=== PATIENT | male | born 1960 | race Asian ===

== ENCOUNTER → 2017-08-03 | Emergency (ER) | payer BC ==
[~2017-08-03] MED LIST: CYCLOBENZAPRINE HCL 10 MG TABLET (FP) ONE; CYCLOBENZAPRINE HCL 10 MG TABLET (FP) PO ONE
--- NOTE | 2017-08-03 13:58 | PDOC ---
History of Present Illness - General Chief Complaint: Back Pain Stated Complaint: BACK PAIN Time Seen by Provider: 08/03/17 13:57 - History of Present Illness Initial Comments: 08/03/17 14:09 Mr. Jimenes is a 57 year old male BIB EMS with a significant past medical history of HTN, Hypercholesterolemia, pinched nerve, and hernia repair who presents to the emergency department via EMS after he experienced sudden pain while opening the refrigerator door. He reports that his pain came on suddenly and was greater than 10/10 across his lower back at his trouser line. He received 30mg IV of toradol via EMS and currently rates his pain at 6/10. The patient denies chest pain, shortness of breath, headache and dizziness. Denies fever, chills, nausea, vomit, diarrhea and constipation. Denies dysuria, frequency, urgency and hematuria. Allergies:Codeine, Penicillin Past History - Past Medical History Allergies/Adverse Reactions: Allergies Allergy/AdvReac Type Severity Reaction Status Date / Time codeine [Codeine] Allergy Unknown Loss of Verified 08/03/17 14:49 consciousness, vomiting Penicillins Allergy Unknown Verified 08/03/17 14:49 Home Medications: Ambulatory Orders Aspirin [Aspir-Low] 81 mg PO DAILY 08/15/13 Rosuvastatin Calcium [Crestor] 10 mg PO DAILY 10/29/14 Omeprazole 40 mg PO DAILY capsule 01/17/15 Cyclobenzaprine HCl [Flexeril 10 mg] 10 mg PO TID PRN #12 tablet 08/03/17 Ibuprofen [Motrin -] 600 mg PO QID PRN #16 tablet 08/03/17 Hypercholesterolemia: Yes - Suicide/Smoking/Psychosocial Hx Smoking Status: No Smoking History: Never smoked Number of Cigarettes Smoked Daily: 0 Hx Alcohol Use: No Substance Use Type: None Review of Systems - Review of Systems Comments:: 08/03/17 14:10 GENERAL/CONSTITUTIONAL: No fever or chills. No weakness. HEAD, EYES, EARS, NOSE AND THROAT: No change in vision. No ear pain or discharge. No sore throat. CARDIOVASCULAR: No chest pain or shortness of breath RESPIRATORY: No cough, wheezing, or hemoptysis. GASTROINTESTINAL: No nausea, vomiting, diarrhea or constipation. GENITOURINARY: No dysuria, frequency, or change in urination. MUSCULOSKELETAL: Lower back pain, previously 10/10, 6/10 after EMS administered toradol.. SKIN: No rash NEUROLOGIC: No headache, vertigo, loss of consciousness, or change in strength/ sensation. ENDOCRINE: No increased thirst. No abnormal weight change HEMATOLOGIC/LYMPHATIC: No anemia, easy bleeding, or history of blood clots. ALLERGIC/IMMUNOLOGIC: No hives or skin allergy. *Physical Exam - Physical Exam Comments: 08/03/17 14:10 GENERAL: Awake, alert, and fully oriented, in no acute distress HEAD: No signs of trauma, normocephalic, atraumatic EYES: PERRLA, EOMI, sclera anicteric, conjunctiva clear ENT: Auricles normal inspection, hearing grossly normal, nares patent, oropharynx clear without exudates. Moist mucosa NECK: Normal ROM, supple, no lymphadenopathy, JVD, or masses LUNGS: No distress, speaks full sentences, clear to auscultation bilaterally HEART: Regular rate and rhythm, normal S1 and S2, no murmurs, rubs or gallops, peripheral pulses normal and equal bilaterally. ABDOMEN: Soft, nontender, normoactive bowel sounds. No guarding, no rebound. No masses EXTREMITIES: +Bilateral negative straight leg test. Patient experiences back pain when lifting own legs. Normal inspection. NEUROLOGICAL: Cranial nerves II through XII grossly intact. Normal speech, normal gait, no focal sensorimotor deficits SKIN: Warm, Dry, normal turgor, no rashes or lesions noted. ED Treatment Course - LABORATORY CBC & Chemistry Diagram: 08/03/17 14:45 08/03/17 14:45 Medical Decision Making - Medical Decision Making 08/03/17 16:05 Patient presented by EMS in reduced pain after 30 mg iv toradol. Pain with active movement of leg only, no pain when leg raised by examiner. Patient symptoms decreased with additional 10mg of flexeril. Origin of pain muscular in nature, discussed with patient and will proscribe 4 days flexeril and motrin with instructions to return for care if no improvement after this time. *DC/Admit/Observation/Transfer Diagnosis at time of Disposition: Low back strain Qualifiers: Encounter type: initial encounter Qualified Code(s): S39.012A - Strain of muscle, fascia and tendon of lower back, initial encounter - Discharge Dispostion Disposition: HOME - Prescriptions Prescriptions: Cyclobenzaprine HCl [Flexeril 10 mg] 10 mg PO TID PRN #12 tablet PRN Reason: Back Pain Ibuprofen [Motrin -] 600 mg PO QID PRN #16 tablet PRN Reason: Back Pain - Referrals Referrals: Omar Bush MD [Primary Care Provider] - - Patient Instructions Printed Discharge Instructions: DI for Back Strain or Sprain Additional Instructions: We are sorry that you were injured today. Please return if any increase in pain or symptoms do not improve. We hope you feel better soon. - Post Discharge Activity Forms/Work/School Notes: Back to Work
--- NOTE | 2017-08-03 14:05 | PDOC ---
Attending Attestation - Resident Resident Name: Familia Rivera - ED Attending Attestation I have performed the following: I have examined & evaluated the patient, The case was reviewed & discussed with the resident, I agree w/resident's findings & plan, Exceptions are as noted - HPI HPI: 08/03/17 14:04 Slipped Discs, twisted, hurting again, by squad - Physicial Exam PE: 08/03/17 14:05 No Acute Distress, VSS - Medical Decision Making 08/03/17 14:[address] Rivera's assessment and plan <Mike Allan - Last Filed: 08/03/17 14:04> - Physicial Exam PE: 08/03/17 15:43 GENERAL: Awake, alert, and fully oriented, in no acute distress HEAD: No signs of trauma, normocephalic, atraumatic EYES: PERRLA, EOMI, sclera anicteric, conjunctiva clear ENT: Auricles normal inspection, hearing grossly normal, nares patent, oropharynx clear without exudates. Moist mucosa NECK: Normal ROM, supple, no lymphadenopathy, JVD, or masses LUNGS: No distress, speaks full sentences, clear to auscultation bilaterally HEART: Regular rate and rhythm, normal S1 and S2, no murmurs, rubs or gallops, peripheral pulses normal and equal bilaterally. ABDOMEN: Soft, nontender, normoactive bowel sounds. No guarding, no rebound. No masses EXTREMITIES: Patient experiences back pain with lifting either leg bilaterally. Moving all extremities purposefully and with 5/5 strength, NEUROLOGICAL: Cranial nerves II through XII grossly intact. Normal speech, normal gait, no focal sensorimotor deficits SKIN: Warm, Dry, normal turgor, no rashes or lesions noted. - Medical Decision Making 08/03/17 15:45 Documentation prepared by Love Tavares, acting as center medical specialist for Mike Allan DO <Love Tavares - Last Filed: 08/03/17 15:45>
[2017-08-03 14:18] VITALS: BMI 26.3
--- NOTE | 2017-08-03 15:08 | EKG ---
Test Reason : Blood Pressure : / mmHG Vent. Rate : 055 BPM Atrial Rate : 055 BPM P-R Int : 160 ms QRS Dur : 098 ms QT Int : 384 ms P-R-T Axes : 017 012 025 degrees QTc Int : 367 ms SINUS BRADYCARDIA NONSPECIFIC T WAVE ABNORMALITY ABNORMAL ECG WHEN COMPARED WITH ECG OF 31-JUL-2005 08:01, T WAVE VARIATION Confirmed by FLORENTINO HERRERA MD ([id number]) on 08/03/2017 3:08:14 PM Referred By: Confirmed By:FLORENTINO HERRERA MD
[2017-08-03 15:24] LABS: BASOPHIL 0.7 % (0-2.0); MCHC 34.2 g/dl (32.0-35.9); MEAN CELL VOLUME 90.6 fl (80-96); MEAN PLT VOLUME 7.1 fl (7.5-11.1); PLATELET COUNT 220 K/MM3 (134-434); RDW 12.5 % (11.9-15.9); WHITE BLOOD COUNT 6.3 K/mm3 (4.0-10.0)
[2017-08-03 15:37] LABS: ALBUMIN 3.7 g/dl (3.4-5.0); ANION GAP 11 (8-16); CALCIUM 8.5 mg/dL (8.5-10.1); CO2 25 mmol/L (21-32); CREATININE 0.9 mg/dL (0.7-1.3); GLUCOSE,RANDOM 104 mg/dL (74-106); SGOT/AST 15 U/L (15-37); SGPT/ALT 29 U/L (12-78)
[2017-08-03 15:39] LABS: ALK PHOS 69 U/L (45-117); BILIRUBIN,TOTAL 0.6 mg/dL (0.2-1.0); TOT PROT 7.4 g/dl (6.4-8.2)
[2017-08-03 16:36] VITALS: BP 117/78; PULSE 58; TEMP 97.4
== END | disposition home or self-care (01) ==
LOC: JER 13:50
DX: S39.012A Strain of muscle, fascia and tendon of lower back, initial encounter (principal); I10 Essential (primary) hypertension; E78.00 Pure hypercholesterolemia, unspecified; X58.XXXA Exposure to other specified factors, initial encounter; Y93.89 Activity, other specified; Y92.9 Unspecified place or not applicable
CPT/HCPCS: 36415; 80053; 85025; 93005; 93010; 99283-25

== ENCOUNTER 2018-06-23 09:18 | Day surgery (SDC) | payer BC ==
[2018-06-16 15:12] VITALS: BMI 24.7
[2018-06-23] MEDS ORDERED: PROPOFOL 20 ML ONE ×2 (09:38)
[2018-06-23] MEDS ORDERED: LIDOCAINE HCL/PF 2% SDV 5ML VIAL ONE (09:39)
[2018-06-23 11:20] VITALS: TEMP 98.1
[2018-06-23 11:38] VITALS: BP 102/65; PULSE 60
== END 2018-06-23 12:05 | disposition home or self-care (01) ==
LOC: FASU-ENDO 09:18
PROVIDERS: ATTEND Internal Medicine Gastroenterology
PROC: 0DJD8ZZ Inspection of Lower Intestinal Tract, Via Natural or Artificial Opening Endoscopic (ICD-10-PCS; principal; 2018-06-23 10:50)
DX: Z12.11 Encounter for screening for malignant neoplasm of colon (principal); K57.30 Diverticulosis of large intestine without perforation or abscess without bleeding; K64.8 Other hemorrhoids

== ENCOUNTER 2018-09-12 12:06 | Emergency (ER) | payer BC ==
[2018-09-12 12:24] VITALS: TEMP 98.2; BMI 26.4
--- NOTE | 2018-09-12 12:59 | PDOC ---
History of Present Illness - General Chief Complaint: Chest Pain Stated Complaint: RIGHT CHEST PAIN Time Seen by Provider: 09/12/18 12:08 - History of Present Illness Initial Comments: 09/12/18 12:50 58 M with h/o HLD presents to ED with chest pain x 2 days. Pt states that the pain started on the left and migrated to the right, though occasionally still bothers him on the left. It is worse with exertion and associated with SOB. Pt currently denies any symptoms while lying in stretcher. Pt denies any leg swelling, though he does state that he was in [place] 2 months ago, and it was a 17 hour flight. Pt denies any FH of heart attack or CVA. Does not smoke. Denies F/C/cough. Past History - Past Medical History Allergies/Adverse Reactions: Allergies Allergy/AdvReac Type Severity Reaction Status Date / Time codeine [Codeine] Allergy Unknown Loss of Verified 09/12/18 12:07 consciousness, vomiting Penicillins Allergy Unknown Verified 09/12/18 12:07 Home Medications: Ambulatory Orders Aspirin [Aspir-Low] 81 mg PO DAILY 08/15/13 Rosuvastatin Calcium [Crestor] 10 mg PO DAILY 10/29/14 Anemia: No Asthma: No Cancer: No Cardiac Disorders: No CVA: No COPD: No CHF: No Dementia: No Diabetes: No GI Disorders: No Disorders: No HTN: No Hypercholesterolemia: Yes Liver Disease: No Seizures: No Thyroid Disease: No - Surgical History Abdominal Surgery: Yes (HERNIA REPAIR) Appendectomy: No Cardiac Surgery: No Cholecystectomy: No Lung Surgery: No Neurologic Surgery: No Orthopedic Surgery: No - Suicide/Smoking/Psychosocial Hx Smoking Status: No Smoking History: Never smoked Have you smoked in the past 12 months: No Number of Cigarettes Smoked Daily: 0 If you are a former smoker, when did you quit?: 1989 Hx Alcohol Use: Yes Drug/Substance Use Hx: No Substance Use Type: Alcohol Hx Substance Use Treatment: No Cardiac Specific PMH - Complaint Specific PMHX Pacemaker: No Review of Systems - Review of Systems Comments:: 09/12/18 12:54 GENERAL/CONSTITUTIONAL: No fever or chills. No weakness. HEAD, EYES, EARS, NOSE AND THROAT: No change in vision. No ear pain or discharge. No sore throat. CARDIOVASCULAR: + chest pain, + shortness of breath, no loss of consciousness RESPIRATORY: No cough, wheezing, or hemoptysis. GASTROINTESTINAL: No nausea, vomiting, diarrhea or constipation. GENITOURINARY: No dysuria, frequency, or change in urination. MUSCULOSKELETAL: No joint or muscle swelling or pain. No neck or back pain. SKIN: No rash NEUROLOGIC: No vertigo, no change in strength/sensation. ENDOCRINE: No increased thirst. No abnormal weight change. HEMATOLOGIC/LYMPHATIC: No anemia, easy bleeding, or history of blood clots. ALLERGIC/IMMUNOLOGIC: No hives or skin allergy. *Physical Exam - Vital Signs Last Vital Signs Temp Pulse Resp BP Pulse Ox 98.2 F 58 L 16 119/76 99 09/12/18 12:07 09/12/18 15:04 09/12/18 15:04 09/12/18 15:04 09/12/18 15:04 - Physical Exam Comments: 09/12/18 12:59 "GENERAL: Awake, alert, and fully oriented, in no acute distress. HEAD: No signs of trauma EYES: PERRLA, EOMI, sclera anicteric, conjunctiva clear ENT: Auricles normal inspection, hearing grossly normal, nares patent, oropharynx clear without exudates. Moist mucosa NECK: Nontender, no stepoffs, Normal ROM, supple, no lymphadenopathy, JVD, or masses LUNGS: Breath sounds equal, clear to auscultation bilaterally. No wheezes, and no crackles HEART: Regular rate and rhythm, normal S1 and S2, no murmurs, rubs or gallops ABDOMEN: Soft, nontender, normoactive bowel sounds. No guarding, no rebound. No masses EXTREMITIES: Normal range of motion, no edema. No clubbing or cyanosis. No cords, erythema, or tenderness NEUROLOGICAL: Cranial nerves II through XII intact. 5/5 strength and sensation in all extremities, Normal speech, normal gait, normal cerebellar function SKIN: Warm, Dry, normal turgor, no rashes or lesions noted." Heart Score/ECG Review - History History: Moderately suspicious - Electrocardiogram EKG: Normal - Age Age: 45-65 - Risk Factors Risk Factors Heart Score: Yes Hx Hypercholesterolemia, Yes Smoking History Based on the list above the patient has:: 1-2 risk factors - ECG Impressions Comment:: 09/12/18 12:59 NSR, no THEODORA/STDs, no TWIs, axis wnl, intervals wnl, rate 64 ED Treatment Course - LABORATORY CBC & Chemistry Diagram: 09/12/18 12:53 09/12/18 12:53 - ADDITIONAL ORDERS Additional order review: Laboratory Results 09/12/18 09/12/18 09/12/18 12:53 12:53 12:53 D-Dimer 318 Sodium 136 Potassium 4.2 Chloride 101 Carbon Dioxide 27 Anion Gap 8 BUN 16 Creatinine 0.8 Creat Clearance w eGFR > 60 Random Glucose 98 Calcium 9.5 Total Bilirubin 0.6 AST 20 D ALT 24 Alkaline Phosphatase 51 Creatine Kinase 81 Troponin I < 0.03 B-Natriuretic Peptide 14.4 Total Protein 7.4 Albumin 4.4 Lipase 151 09/12/18 12:53 RBC 4.66 MCV 91.9 MCHC 33.0 RDW 11.7 L MPV 7.4 L Neutrophils % 59.1 Lymphocytes % 24.4 Monocytes % 12.8 H Eosinophils % 3.2 D Basophils % 0.5 - RADIOLOGY Radiology Studies Ordered: Category Date Time Status CHEST PA & LAT [RAD] Stat Radiology 09/12/18 12:47 Completed Medical Decision Making - Medical Decision Making 09/12/18 13:00 58 M with exertional chest pain and SOB. EKG without any signs of ischemia, but will need to r/o ACS. Pt also with recent travel to [place]. Will r/o PE with ddimer. - Labs, trop, ddimer - CXR 09/12/18 15:12 Labs, trop, and ddimer all negative Single trop sufficient to r/o ACS given duration of symptoms 2 days HEART score 3, safe for DC with cards f/u. CXR clear Pt reassessed - states he feels well currently with no CP/SOB. Pt instructed to f/u with Dr. Davila within 48 hours. Pt is well appearing, with normal vitals. Clinically stable for DC at this time. I discussed the physical exam findings, ancillary test results and final diagnoses with the patient. I answered all of the patient's questions. The patient was satisfied with the care received and felt comfortable with the discharge plan and treatment plan. The patient agrees to follow up with the primary care physician within 24-72 hours. *DC/Admit/Observation/Transfer Diagnosis at time of Disposition: Chest pain - Discharge Dispostion Disposition: HOME Condition at time of disposition: Stable - Referrals Referrals: Omar Bush MD [Primary Care Provider] - Evaristo Davila MD [Staff Physician] - - Patient Instructions Printed Discharge Instructions: DI for Atypical Chest Pain Additional Instructions: Your bloodwork, X ray, and EKG were unremarkable today. However, this does not rule out all heart or lung disease. You MUST follow up with Dr. Davila within 2 days for further evaluation of your chest pain. If you experience worsening pain, shortness of breath, or any other concerning symptoms, return to the ER immediately. - Post Discharge Activity - Attestations Physician Attestion: 09/12/18 15:15 I, Dr. Roland Metcalf MD, attest that this document has been prepared under my direction and personally reviewed by me in its entirety. I further attest, that it accurately reflects all work, treatment, procedures and medical decision -making performed by me.
[2018-09-12 13:17] LABS: BASO % 0.5 % (0-2.0); EOS % 3.2 % (0-4.5); HEMATOCRIT 42.8 % (35.4-49); HEMOGLOBIN 14.1 GM/dl (11.7-16.9); LYMPH % 24.4 % (8-40); MCH 30.3 pg (25.7-33.7); MEAN CELL VOLUME 91.9 fl (80-96); MEAN PLT VOLUME 7.4 fl (7.5-11.1); MONO % 12.8 % (3.8-10.2); NEUT % 59.1 % (42.8-82.8); PLATELET COUNT 255 K/MM3 (134-434); RBC 4.66 M/mm3 (4.00-5.60); RDW 11.7 % (11.9-15.9); WHITE BLOOD COUNT 6.9 K/mm3 (4.0-10.8)
[2018-09-12 13:26] LABS: ALBUMIN 4.4 g/dl (3.5-5.0); ALK PHOS 51 U/L (32-92); ANION GAP 8 MMOL/L (8-16); BILIRUBIN,TOTAL 0.6 mg/dl (0.2-1.0); BLOOD UREA NITROGEN 16 mg/dl (7-18); CALCIUM 9.5 mg/dl (8.4-10.2); CHLORIDE 101 mmol/L (98-107); CO2 27 mmol/L (22-28); CREATININE 0.8 mg/dl (0.6-1.3); GLUCOSE,RANDOM 98 mg/dl (74-106); POTASSIUM 4.2 mmol/L (3.5-5.1); SGOT/AST 20 U/L (10-42); SGPT/ALT 24 U/L (10-40); SODIUM 136 mmol/L (136-145); TOT PROT 7.4 g/dl (6.4-8.3)
[2018-09-12 15:04] VITALS: BP 119/76; PULSE 58
[2018-09-12 15:05] LABS: LIPASE 151 U/L (73-393); N-TERMINAL BNP 14.4 pg/ml (5-125)
== END 2018-09-12 15:28 | disposition home or self-care (01) ==
LOC: FER 12:06
DX: R07.9 Chest pain, unspecified (principal); E78.5 Hyperlipidemia, unspecified; Z88.0 Allergy status to penicillin; Z88.6 Allergy status to analgesic agent
CPT/HCPCS: 36415; 71046-TC-FY; 80053; 82550; 83690; 83880; 84484; 85025; 85379; 99284-25

== ENCOUNTER 2019-03-02 09:00 | Day surgery (SDC) | payer BC, OTHER ==
[2019-02-25 10:12] VITALS: BMI 26.6
[2019-03-02] MEDS: TROPICAMIDE 1% OPHTH SOLN 15 ML BOTTLE ONE ×3 (09:55→10:05)
[2019-03-02] MEDS: CIPROFLOXACIN 0.3% EYE DROPS 5 ML BOTTLE ONE ×3 (09:55→10:05)
[2019-03-02] MEDS: CYCLOPENTOLATE 2% OPHTH SOLN 2 ML BOTTLE ONE ×3 (09:55→10:05)
[2019-03-02] MEDS: PHENYLEPHRINE 2.5% OPHTH SOLN 15 ML BOTTLE ONE ×3 (09:55→10:05)
[2019-03-02] MEDS ORDERED: MIDAZOLAM HCL 2 MG/2 ML SINGLE DOSE VIAL ONE (11:18)
[2019-03-02] MEDS ORDERED: BSS (NA/CA/MG/K) BALANCED SALT SOLUTION OPHTH SOLN 15 ML BOTTLE ONE (11:22)
[2019-03-02] MEDS ORDERED: CARBACHOL 0.01% INTRA-OCULAR 1.5 ML VIAL ONE (11:22)
[2019-03-02] MEDS ORDERED: TETRACAINE 0.5% OPHTH SOLN 2 ML BOTTLE ONE (11:22)
[2019-03-02] MEDS ORDERED: ONDANSETRON 4 MG/2 ML VIAL IVPUSH PRN (11:33)
[2019-03-02] MEDS ORDERED: ACETAMINOPHEN 325 MG TABLET (FP) PO PRN (11:33)
[2019-03-02] MEDS ORDERED: LACTATED RINGERS SOLUTION 1,000 ML IV SCH (11:45)
[2019-03-02 13:25] VITALS: TEMP 98.2
[2019-03-02 13:27] VITALS: BP 109/71; PULSE 60
--- NOTE | 2019-03-02 14:59 | OP ---
DATE OF OPERATION: 03/02/2019 OPERATIVE PROCEDURE: Lens Phacoemulsification with Posterior Chamber Intraocular Lens Placement, Right Eye PREOPERATIVE DIAGNOSIS: Visually Significant Cataract of Right Eye POSTOPERATIVE DIAGNOSIS: Visually Significant Cataract of Right Eye SURGEON: Leandro Dolan M.D. ANESTHESIA: MAC PROCEDURE: The patient was brought to the operating room and placed under monitored anesthesia care by Anesthesia. A drop of Tetracaine was then placed over the right eye. The patient was then prepped and draped in the usual sterile manner. A speculum was then placed over the right eye. The eye was then well irrigated with copious amounts of BSS (balanced salt solution). The operating microscope was then moved into position. A paracentesis was performed using a 15 degree blade. At this point 0.5 mL of 1% preservative free-lidocaine was injected into the anterior chamber. Amvisc plus was then injected into the anterior chamber. A clear corneal incision was then formed using a 2.2 mm keratome. A capsulorrhexis was then performed in a continuous circular fashion beginning with a cystotome completed with an Utratas forceps. Hydrodissection was then performed using BSS on a cannula. The phaco probe was then introduced through the corneal wound and the cataract was removed using the phaco chop technique. Approximately 3 seconds of absolute phaco time was used. The remaining cortex was then removed using irrigation and aspiration with an I/A probe. The capsule was then filled with regular Amvisc and the capsule was noted to be intact. A previously selected foldable posterior chamber intraocular lens was then injected into the capsule through the corneal wound using a lens injector. It was then dialed into position using a Sinskey hook. The Amvisc was then removed using irrigation and aspiration. Miostat was then injected through the paracentesis to constrict the pupil. The paracentesis and corneal wound were then hydrated and noted to be water tight. A drop of Maxitrol was then placed over the eye. The speculum was removed and clear shield was taped over the eye. The patient tolerated the procedure well and there were no surgical complications. The patient was asked to follow up in my office the next day. LEANDRO DOLAN M.D. [id number]
== END 2019-03-02 12:35 | disposition home or self-care (01) ==
LOC: FASU 09:00
PROVIDERS: ATTEND Ophthalmology
PROC: 08RJ3JZ Replacement of Right Lens with Synthetic Substitute, Percutaneous Approach (ICD-10-PCS; principal; 2019-03-02 11:40)
DX: H26.8 Other specified cataract (principal)

== ENCOUNTER 2019-03-30 08:04 | Day surgery (SDC) | payer BC | END 2019-03-30 11:40 | disposition home or self-care (01) | LOC: FASU 08:04 ==

== ENCOUNTER 2022-07-04 04:20 | Day surgery (SDC) | payer BC ==
[2022-07-02 10:24] VITALS: BMI 27.1
[2022-07-04] MEDS ORDERED: BUPIVACAINE HCL/PF 0.75% 10 ML VIAL PNB ONE ×2 (10:32→10:45)
[2022-07-04] MEDS ORDERED: LIDOCAINE HCL 1% PRESERVATIVE FREE - 30ML VIAL IJ ONE ×2 (10:32→10:45)
[2022-07-04 11:20] VITALS: BP 116/78; PULSE 58; RESP 18; TEMP 98.2
== END 2022-07-04 11:30 | disposition home or self-care (01) ==
LOC: JASU-SURG 04:20
PROVIDERS: ATTEND Pain Medicine Pain Medicine
PROC: BR16YZZ Fluoroscopy of Lumbar Facet Joint(s) using Other Contrast (ICD-10-PCS; 2022-07-04)
PROC: 3E0T3BZ Introduction of Anesthetic Agent into Peripheral Nerves and Plexi, Percutaneous Approach (ICD-10-PCS; principal; 2022-07-04 09:15)
DX: M47.816 Spondylosis without myelopathy or radiculopathy, lumbar region (principal)
CPT/HCPCS: 76000-TC-FY

== ENCOUNTER 2022-08-01 04:21 | Day surgery (SDC) | payer BC ==
[2022-07-30 17:32] VITALS: BMI 27.1
[~2022-08-01 04:21] MED LIST changes: +BUPIVACAINE HCL/PF 0.75% 10 ML VIAL PNB ONE; -CYCLOBENZAPRINE HCL 10 MG TABLET (FP) ONE; -CYCLOBENZAPRINE HCL 10 MG TABLET (FP) PO ONE; +IOHEXOL 180 MG/1 ML ML IJ ONE; +LIDOCAINE 1% P/F 10 MG/ML VIAL PNB ONE
[2022-08-01] MEDS ORDERED: LIDOCAINE HCL/PF 1% SDV 5ML VIAL ONE (07:36)
[2022-08-01] MEDS ORDERED: BUPIVACAINE HCL/PF 0.75% 10 ML VIAL ONE (07:36)
[2022-08-01 08:21] VITALS: TEMP 98.9
[2022-08-01] MEDS ORDERED: BUPIVACAINE HCL/PF 0.75% 10 ML VIAL PNB ONE (11:35)
[2022-08-01] MEDS ORDERED: LIDOCAINE 1% P/F 10 MG/ML VIAL PNB ONE (11:35)
[2022-08-01 12:00] VITALS: BP 127/78; PULSE 52; RESP 20
== END 2022-08-01 12:11 | disposition home or self-care (01) ==
LOC: JASU-SURG 04:21
PROVIDERS: ATTEND Pain Medicine Pain Medicine
PROC: BR16YZZ Fluoroscopy of Lumbar Facet Joint(s) using Other Contrast (ICD-10-PCS; 2022-08-01)
PROC: 3E0T3BZ Introduction of Anesthetic Agent into Peripheral Nerves and Plexi, Percutaneous Approach (ICD-10-PCS; principal; 2022-08-01 10:45)
DX: M47.816 Spondylosis without myelopathy or radiculopathy, lumbar region (principal)
CPT/HCPCS: 76000-TC-FY

== ENCOUNTER → 2022-09-12 | Day surgery (SDC) | payer BC ==
[2022-09-11 08:23] VITALS: BMI 27.1
[~2022-09-12] MED LIST changes: +BUPIVACAINE HCL/PF 0.5% (5MG/ML) 10 ML VIAL ONE; +BUPIVACAINE HCL/PF 0.75% 10 ML VIAL ONE; -BUPIVACAINE HCL/PF 0.75% 10 ML VIAL PNB ONE; +DEXAMETHASONE SOD PHOSPHATE 10 MG/1 ML VIAL ONE; -IOHEXOL 180 MG/1 ML ML IJ ONE; -LIDOCAINE 1% P/F 10 MG/ML VIAL PNB ONE; +LIDOCAINE HCL/PF 1% SDV 5ML VIAL ONE; +LIDOCAINE HCL/PF 2% SDV 5ML VIAL ONE
[2022-09-12 07:44] VITALS: BP 127/72; PULSE 64; RESP 18; TEMP 98.2
== END | disposition home or self-care (01) ==
LOC: JASU-SURG 04:07
PROVIDERS: ATTEND Pain Medicine Pain Medicine
DX: Z53.9 Procedure and treatment not carried out, unspecified reason (principal)
CPT/HCPCS: J1100

== ENCOUNTER 2022-10-17 04:17 | Day surgery (SDC) | payer BC ==
[2022-10-13 11:39] VITALS: BMI 27.1
[2022-10-17] MEDS ORDERED: LIDOCAINE HCL/PF 2% SDV 5ML VIAL ONE (07:27)
[2022-10-17] MEDS ORDERED: DEXAMETHASONE SOD PHOSPHATE 10 MG/1 ML VIAL ONE (07:27)
[2022-10-17] MEDS ORDERED: LIDOCAINE HCL/PF 1% SDV 5ML VIAL ONE (07:28)
[2022-10-17] MEDS ORDERED: BUPIVACAINE HCL/PF 0.75% 10 ML VIAL ONE (07:28)
[2022-10-17] MEDS ORDERED: BUPIVACAINE HCL/PF 0.75% 10 ML VIAL CAUD ONE (10:21)
[2022-10-17] MEDS ORDERED: LIDOCAINE HCL/PF 2% SDV 5ML VIAL INF ONE (10:22)
[2022-10-17] MEDS ORDERED: DEXAMETHASONE SOD PHOSPHATE 10 MG/1 ML VIAL IVPUSH ONE (10:23)
[2022-10-17] MEDS ORDERED: LIDOCAINE HCL 1%, 10 MG/ML (50 mL VIAL) INF ONE (10:23)
[2022-10-17 11:20] VITALS: RESP 18; TEMP 97.9
[2022-10-17 11:26] VITALS: BP 147/82; PULSE 57
== END 2022-10-17 12:55 | disposition home or self-care (01) ==
LOC: JASU-SURG 04:17
PROVIDERS: ATTEND Pain Medicine Pain Medicine
PROC: 3E0T3TZ Introduction of Destructive Agent into Peripheral Nerves and Plexi, Percutaneous Approach (ICD-10-PCS; principal; 2022-10-17 09:45)
DX: M47.816 Spondylosis without myelopathy or radiculopathy, lumbar region (principal)
CPT/HCPCS: 76000-TC-FY; J1100

== ENCOUNTER 2022-11-21 04:02 | Day surgery (SDC) | payer BC ==
[2022-11-19 11:25] VITALS: BMI 25.4
[~2022-11-21 04:02] MED LIST changes: -BUPIVACAINE HCL/PF 0.5% (5MG/ML) 10 ML VIAL ONE; +BUPIVACAINE HCL/PF 0.75% 10 ML VIAL NR ONE; -BUPIVACAINE HCL/PF 0.75% 10 ML VIAL ONE; +DEXAMETHASONE SOD PHOSPHATE 10 MG/1 ML VIAL IVPUSH ONE; -DEXAMETHASONE SOD PHOSPHATE 10 MG/1 ML VIAL ONE; +LIDOCAINE 1% P/F 10 MG/ML VIAL INF ONE; -LIDOCAINE HCL/PF 1% SDV 5ML VIAL ONE; +LIDOCAINE HCL/PF 2% SDV 5ML VIAL INF ONE; -LIDOCAINE HCL/PF 2% SDV 5ML VIAL ONE
[2022-11-21] MEDS ORDERED: DEXAMETHASONE SOD PHOSPHATE 10 MG/1 ML VIAL ONE (07:19)
[2022-11-21] MEDS ORDERED: LIDOCAINE HCL/PF 2% SDV 5ML VIAL ONE (07:19)
[2022-11-21] MEDS ORDERED: LIDOCAINE HCL/PF 1% SDV 5ML VIAL ONE (07:19)
[2022-11-21] MEDS ORDERED: BUPIVACAINE HCL/PF 0.75% 10 ML VIAL ONE (07:19)
[2022-11-21 10:40] VITALS: BP 116/75
[2022-11-21] MEDS ORDERED: DEXAMETHASONE SOD PHOSPHATE 10 MG/1 ML VIAL IVPUSH ONE (11:55)
[2022-11-21] MEDS ORDERED: LIDOCAINE 1% P/F 10 MG/ML VIAL INF ONE ×2 (11:55→11:58)
[2022-11-21] MEDS ORDERED: LIDOCAINE HCL/PF 2% SDV 5ML VIAL INF ONE (11:55)
[2022-11-21] MEDS ORDERED: BUPIVACAINE HCL/PF 0.75% 10 ML VIAL NR ONE (11:55)
[2022-11-21 13:14] VITALS: PULSE 60; RESP 18; TEMP 98
== END 2022-11-21 12:45 | disposition home or self-care (01) ==
LOC: JASU-SURG 04:02
PROVIDERS: ATTEND Pain Medicine Pain Medicine
PROC: 005Y3ZZ Destruction of Lumbar Spinal Cord, Percutaneous Approach (ICD-10-PCS; principal; 2022-11-21 12:00)
DX: M47.816 Spondylosis without myelopathy or radiculopathy, lumbar region (principal)
CPT/HCPCS: 76000-TC-FY; J1100

== ENCOUNTER 2023-09-05 13:35 | Emergency (ER) | payer BC, OTHER ==
[2023-09-05 13:48] VITALS: BP 129/79; PULSE 60; RESP 18; TEMP 97.8; BMI 27.1
== END 2023-09-05 14:21 | disposition home or self-care (01) ==
LOC: FER 13:35
PROC: 09PHXKZ Removal of Nonautologous Tissue Substitute from Right Ear, External Approach (ICD-10-PCS; principal; 2023-09-05)
DX: T16.2XXA Foreign body in left ear, initial encounter (principal)
CPT/HCPCS: 99282-25

== ENCOUNTER 2024-01-15 09:11 | Day surgery (SDC) | payer BC ==
[2024-01-11 13:48] VITALS: BMI 27.1
[2024-01-15 10:51] VITALS: RESP 20; TEMP 97.8
[2024-01-15 10:55] VITALS: BP 93/68; PULSE 66
== END 2024-01-15 10:56 | disposition home or self-care (01) ==
LOC: FASU-ENDO 09:11
PROVIDERS: ATTEND Internal Medicine Gastroenterology
PROC: 0DBN8ZX Excision of Sigmoid Colon, Via Natural or Artificial Opening Endoscopic, Diagnostic (ICD-10-PCS; principal; 2024-01-15 10:07)
DX: Z12.11 Encounter for screening for malignant neoplasm of colon (principal); D12.8 Benign neoplasm of rectum; K64.1 Second degree hemorrhoids; K64.8 Other hemorrhoids
CPT/HCPCS: 88305-TC